=== PATIENT | male | born 1965 | race Caucasian/White ===

== ENCOUNTER 2019-09-06 06:55 | Emergency (ER) | payer BC ==
[~2019-09-06] VITALS: Ht 167.6 cm; Wt 81.6 kg
[2019-09-06 07:01] VITALS: Ht 167.6 cm; Wt 81.6 kg
[2019-09-06 14:45] VITALS: BP 113/74
== END 2019-09-06 14:45 | disposition home or self-care (01) ==
LOC: ED 06:55
DX: S62.501B Fracture of unspecified phalanx of right thumb, initial encounter for open fracture (principal); X58.XXXA Exposure to other specified factors, initial encounter; Y93.89 Activity, other specified; Y92.89 Other specified places as the place of occurrence of the external cause; Y99.8 Other external cause status
CPT/HCPCS: J0690; J2001; J2543; J3010; J3370; J3490